=== PATIENT | female | born 1945 ===

== ENCOUNTER 2023-11-12 13:35 | Outpatient (OUT) | payer MEDICARE, SELFPAY ==
--- NOTE | 2023-11-12 | XR_ITS ---
The [address] [address] Patient Name: MARIA DAVIDSON MRN: [id number] date: 1945 Sex: F Assigned Patient Location: Current Patient Location: Accession/Order Number: [id number] Exam Date: 11/12/2023 13:45 Report Date: 11/13/2023 07:12 At the request of: STEPHEN LIGHT Procedure: XR ankle DEON min 3V EXAMINATION: XR ankle DEON min 3V HISTORY: BILATERAL ANKLE PAIN COMPARISON: No relevant comparison available. FINDINGS: RIGHT FINDINGS: BONES: Normal. No significant arthropathy or acute abnormality. SOFT TISSUES: Negative. No visible soft tissue swelling. OTHER: Negative. LEFT FINDINGS: BONES: No acute fracture or dislocation. Severe osteoarthritis with [id number] articulation and significant bony remodeling of the lateral tibiotalar joint. There is eversion of the hindfoot. SOFT TISSUES: Negative. No visible soft tissue swelling. OTHER: Moderate joint effusion XR/XR ankle DEON min 3V IMPRESSION: RIGHT CONCLUSION: No abnormality LEFT CONCLUSION: Severe tibiotalar osteoarthritis Electronically authenticated by: OSBALDO DAVALOS Date: 11/13/2023 07:12
== END 2023-11-12 13:36 | disposition home or self-care (01) ==
LOC: EC 13:36
PROVIDERS: Visit Provider Podiatrist Foot & Ankle Surgery
DX: M25.572 Pain in left ankle and joints of left foot (principal); M25.571 Pain in right ankle and joints of right foot; M19.072 Primary osteoarthritis, left ankle and foot
CPT/HCPCS: 73610